=== PATIENT | male | born 1990 | race Caucasian/White ===

== ENCOUNTER 2022-01-04 22:39 | Emergency (ER) | payer BC, SELFPAY ==
[2022-01-04 22:45] VITALS: BP 121/78; PULSE 79; RESP 18; TEMP 36.7; O2SAT 99; BMI 28.5
--- NOTE | 2022-01-04 23:51 | ED_ITS ---
HPI - General Adult General Chief complaint: Unspecified Complaint, Adult Stated complaint: Tapeworms Time Seen by Provider: 01/04/22 22:44 Source: patient Mode of arrival: ambulatory Limitations: no limitations History of Present Illness HPI narrative: Patient presents with a 4 day history of suspicion of tape worms. 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 He has had no known obvious exposures to worms or other infected animals. He states that 4 days ago, he initially noted some long stringy segments in his stool that were not related to any ingested food. Similar noted abnormalities in next bowel movement as well. There has been no blood. He says that he has had an increased appetite over the last couple of weeks but no other severe symptoms. No bloating, no severe abdominal pain, no nausea, no vomiting. No prior history of parasitic infections. His who also does work in animal rescue has been diagnosed with tape worms in the remote past and is not currently symptomatic. He does bring pictures of his stools which do indicate likely tapeworms. No rectal itching or symptoms of pinworms. No history of autoimmune GI disease, immunosuppression, fevers. He has tried taking fiber supplements and eating apply SCDs as these are known natural remedies. Past medical history reported as benign, no major long-term health problems, no long-term medications, denies any allergies. No history of GI surgeries. Related Data Home Medications Medication Instructions Recorded Confirmed alprazolam 0.5 mg tablet (Xanax) 0.5 mg PO TID PRN 01/04/22 01/04/22 Previous Rx's Medication Instructions Recorded albendazole 200 mg tablet 400 mg PO BID 2 weeks #56 tabs 01/05/22 Allergies Allergy/AdvReac Type Severity Reaction Status Date / Time No Known Drug Allergies Allergy Verified 01/04/22 22:48 Review of Systems Narrative: Negative generalized, skin. Negative urinary, positive GI symptoms as above only. [facility] Medical History Anxiety Surgical History No significant past surgical history Social History Smoking Status: Never smoker Do you use any of these nicotine containing products: None How often do you have a drink containing alcohol: never How often do you have six or more drinks on one occasion: Never AUDIT-C Alcohol total score: 0 Non-prescribed substance use: denies use Exam 2 Const: Vital Signs, click to edit/add: Vital Signs - 24 hr 01/04/22 22:45 Temperature 98.0 F Pulse Rate [Right Pulse Oximeter] 79 Respiratory Rate 18 Blood Pressure [Ri ght Upper Arm] 121/78 Pulse Oximetry 99 Oxygen Delivery Me thod Room Air Documenting provider has reviewed patient's vital signs: yes Common normals: no apparent distress General appearance: cooperative HENMT: Common normals: normocephalic Head and scalp: normocephalic Eye: Common normals: conjunctivae normal and no scleral icterus Conjunctiva: conjunctiva(e) normal Resp: Common normals: normal respiratory effort and clear to auscultation bilaterally Auscultation: clear to auscultation bilaterally Cardio: Common normals: regular rate, regular rhythm, S1 normal heart sound, S2 normal heart sound, no murmurs and peripheral pulses 2+ throughout Rate: regular rate Rhythm: regular rhythm Heart sounds: S1 normal and S2 normal Peripheral pulses: pulses 2+ throughout GI: Common normals: Normal to inspection, nondistended, normoactive bowel sounds present, soft to palpation, non-tender, no hepatosplenomegaly and no masses Palpation: soft and no hepatosplenomegaly Psych: Attitude: engaged Activity/motor behavior: appropriate eye contact Mood and affect: euthymic mood Insight: insight good Skin: Common normals: no rashes or lesions noted General skin exam: no rashes or lesions noted Course Vital Signs Vital signs: Initial Vital Signs Temperature 98.0 F 01/04/22 22:45 Temperature Source Temporal Artery Scan 01/04/22 22:45 Pulse Rate 79 01/04/22 22:45 Respiratory Rate 18 01/04/22 22:45 Blood Pressure 121/78 01/04/22 22:45 Blood Pressure Mean 92 01/04/22 22:45 Blood Pressure Position Sitting 01/04/22 22:45 Pulse Oximetry 99 01/04/22 22:45 Oxygen Delivery Method 01/04/22 22:45 Vital Signs Temperature 98.0 F 01/04/22 22:45 Pulse Rate 79 01/04/22 22:45 Respiratory Rate 18 01/04/22 22:45 Blood Pressure 121/78 01/04/22 22:45 Pulse Oximetry 99 01/04/22 22:45 Oxygen Delivery Method 01/04/22 22:45 Temperature 98.0 F 01/04/22 22:45 Pulse Rate 79 01/04/22 22:45 Respiratory Rate 18 01/04/22 22:45 Blood Pressure 121/78 01/04/22 22:45 Pulse Oximetry 99 01/04/22 22:45 Oxygen Delivery Method 01/04/22 22:45 Medical Decision Making MDM Narrative Medical decision making narrative: Discussed high potential for false negative stool testing. Patient will try to leave a stool sample today but we discussed the risks and benefits of empiric treatment even if the testing were to come back negative. Counseled that the testing will take up to 10 days to come back also. He was agreeable to empiric treatment. We discussed follow-up plan in the clinic if he is still seemingly symptomatic in 3-4 weeks for repeat testing and potential treatment. Discharge Plan Discharge Clinical Impression: Tapeworm infection Patient Disposition: Home, Self-Care Condition: Stable Instructions: Tapeworm Infection (ED) Additional Instructions: We will attempt to collect a stool sample today. As we discussed, based on your risk factors, and the risk of false negative test, I would recommend empiric treatment for you. I will prescribe a medication called albendazole. You will take 400 mg twice daily for 7 days. As we discussed, you will remain contagious while you are SHEDDING the eggs. If you are still symptomatic in 3-4 weeks, I would recommend making a clinic appointment to discuss further and to order repeat stool testing. Wash your hands thoroughly, clean the bathroom well, avoid contact with potentially infected animals. If you are having severe abdominal pain, and or bloody stools during treatment, seek additional medical care. These complications are thankfully rare and are more common only with infections that have been present for many years and other species of worms. Activity Level: No Restrictions Discharge Diet: Regular Prescriptions: New albendazole 200 mg tablet 400 mg PO BID 14 Days Qty: 56 0RF Rx Instructions: must administer with food, preferably a high-fat meal No Action alprazolam [Xanax] 0.5 mg tablet 0.5 mg PO TID PRN Stand Alone Forms: MyHealth Info Instructions
[2022-01-05 00:32] VITALS: BP 118/82; PULSE 84; RESP 18; TEMP 36.7; O2SAT 99
[2022-01-05 00:36] VITALS: BP 118/82; PULSE 84; RESP 18; TEMP 36.7
[2022-01-16 15:02] LABS: Ova and Parasite, Fecal Negative (Negative)
== END 2022-01-05 00:36 | disposition home or self-care (01) ==
LOC: ED 01-05 00:19
PROVIDERS: Emergency Provider Family Medicine
DX: B71.9 Cestode infection, unspecified (principal)
CPT/HCPCS: 87177; 87209; 99282; 99283

== ENCOUNTER 2025-01-26 13:45 | Emergency (ER) | payer BC, SELFPAY ==
[2025-01-26 13:49] VITALS: BP 98/63; PULSE 78; RESP 16; TEMP 36.5; O2SAT 96; BMI 29.2
--- NOTE | 2025-01-26 14:26 | CRLHL7_ITS ---
For Patients: As a result of the Century Cures Act, medical imaging exams and procedure reports are released immediately into your electronic medical record. You may view this report before your referring provider. If you have questions, please contact your health care provider. Indication: Pain at the base of the thumb. Technique: Three views of the right hand. Comparison: None. Findings: No acute osseous abnormality. The joint spaces are grossly preserved. Dictated by Antoine Lagunas MD @ 01/26/2025 3:09:14 PM (Electronically Signed)
--- NOTE | 2025-01-26 14:29 | ED_ITS ---
HPI - General Adult General Chief complaint: Extremity Pain/Injury, Upper Stated complaint: R thumb injury Time Seen by Provider: 01/26/25 14:24 Source: patient Mode of arrival: ambulatory Limitations: no limitations History of Present Illness HPI narrative: 34-year-old male presenting today with some pain of the right thumb. He states that yesterday his thumb got crushed between 2 boards. He states that the pain is worse today than it was yesterday. There was a nail on the board which caused a small puncture wound as well. Tdap updated in 2019. Related Data Previous Rx's ?Medication ?Instructions ?Recorded cefadroxil 500 mg capsule 500 mg PO BID 7 days #14 cap s 01/26/25 Allergies Allergy/AdvReac Type Severity Reaction Status Date / Time No Known Drug Allergies Allergy Verified 01/04/23 17:53 Review of Systems Status of ROS: Reports: 6 or more systems reviewed and unremarkable except as noted in History and below [facility] Medical History Anxiety ?F41.9 - Anxiety disorder, unspecified (ICD-10) Surgical History No significant past surgical history Social History Smoking Status: Never smoker Do you use any of these nicotine containing products: None How often do you have a drink containing alcohol: never How often do you have six or more drinks on one occasion: Never AUDIT-C Alcohol total score: 0 Non-prescribed substance use: denies use Exam Narrative: Exam Narrative: Patient has mild tenderness at the base of the thumb and over the metacarpal. Distal to the MCP the thumb feels and looks normal. Normal radial pulse. On the dorsal surface at the base of the thumb there is a very small puncture wound. The entire area is mildly swollen, no ecchymosis or crepitus. Const: Vital Signs, click to edit/add: Vital Signs - 24 hr 01/26/25 13:49 Temperature 97.7 F Pulse Rate [Pulse Oximeter] 78 Respiratory Rate 16 Blood Pressure [Le ft Upper Arm] 98/63 Pulse Oximetry 96 Oxygen Delivery Me thod Room Air Course Course ED Course: X-ray of the hand was done, read by me, is not show any acute fractures. Vital Signs Vital signs: Initial Vital Signs Temperature 97.7 F 01/26/25 13:49 Temperature Source Temporal Artery Scan 01/26/25 13:49 Pulse Rate 78 01/26/25 13:49 Respiratory Rate 16 01/26/25 13:49 Blood Pressure 98/63 01/26/25 13:49 Blood Pressure Mean 74 01/26/25 13:49 Blood Pressure Position Sitting 01/26/25 13:49 Pulse Oximetry 96 01/26/25 13:49 Oxygen Delivery Method Room Air 01/26/25 13:49 Vital Signs Temperature 97.7 F 01/26/25 13:49 Pulse Rate 78 01/26/25 13:49 Respiratory Rate 16 01/26/25 13:49 Blood Pressure 98/63 01/26/25 13:49 Pulse Oximetry 96 01/26/25 13:49 Oxygen Delivery Method Room Air 01/26/25 13:49 Temperature 97.7 F 01/26/25 13:49 Pulse Rate 78 01/26/25 13:49 Respiratory Rate 16 01/26/25 13:49 Blood Pressure 98/63 01/26/25 13:49 Pulse Oximetry 96 01/26/25 13:49 Oxygen Delivery Method Room Air 01/26/25 13:49 Medical Decision Making Imaging Data X-ray hand: Attestation: I have reviewed the pertinent imaging results. Radiologist's impression: Technique: Three views of the right hand. Comparison: None. Findings: No acute osseous abnormality. The joint spaces are grossly preserved. Discharge Plan Discharge Clinical Impression: Crush injury of hand, Puncture wound Patient Disposition: Home, Self-Care Condition: Stable Additional Instructions: You are at risk of infection due to the puncture wound. If the area starts to become more painful and turns red, start taking antibiotics and see your doctor for a follow-up. Prescriptions: New cefadroxil 500 mg capsule 500 mg PO BID 7 Days Qty: 14 0RF Follow Up/Referrals: Provider,Not a Local [Primary Care Provider, Family Practice] Stand Alone Forms: MyHealth Info Instructions
== END 2025-01-26 15:21 | disposition home or self-care (01) ==
PROVIDERS: Emergency Provider Family Medicine
DX: S67.01XA Crushing injury of right thumb, initial encounter (principal); W23.0XXA Caught, crushed, jammed, or pinched between moving objects, initial encounter
CPT/HCPCS: 73130; 99283; 99284